=== PATIENT | male | born 1980 | race Caucasian/White ===

== ENCOUNTER 2016-07-06 18:39 | Emergency (ER) | payer OTHER ==
[~2016-07-06] VITALS: Ht 175.3 cm; Wt 163.3 kg
[2016-07-06] MEDS ORDERED: GLYBURIDE 5MG TA5 MG PO (18:46)
--- NOTE | 2016-07-06 18:51 | Emergency Room Report ---
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 N Clinical Suspician of Infection? N Mental Status: 1 - Regular (Normal Baseline) Sepsis Risk:Low Sepsis Risk Have you (or family members/close friends) recently traveled outside the [place]? N If Yes, where/when: Have you had exposure to infectious disease within the past month? N TB? Other? Specify: Source patient, RN notes reviewed Exam Limitations no limitations Comment This is a 36-year-old male with a past medical history significant for diabetes who presents to the emergency department for hyperglycemia. He states that he has been feeling well and in his baseline health with normal blood sugars that range in the 200 range until today when he was driving to work he felt groggy and sleepy with slightly blurred vision. He has felt this way before with high blood sugar, so checked his blood sugar at work and it was in the upper 500 range. The last time he checked his blood sugar was yesterday and it was in the 230s. He has not had any vomiting, diarrhea, chest pain, abdominal pain, shortness of breath, cough, urinary symptoms. He takes only glyburide for his diabetes and admits that he is a few months late for his primary care follow-up and diabetes reassessment. Currently, his symptoms are resolving. ALLERGIES Coded Allergies: No Known Allergies (07/06/16) (Conner UNGER, Sandro) Home Medications Reported Medications Glyburide (Glyburide 5MG) 5 MG PO BIDD (Osiris UNGER, Jhon) History Medical History General CAD? No Angina: No RI: No Hypertension? No Hyperlipidemia? No CHF? No DVT? No PE? No COPD? No Asthma? No Anemia? No GERD? No Gastric ulcers? No GI Bleed? No Hernia? No Thyroid Problems? No Hypothyroidism? No CVA? No Seizures? No Diabetes? Yes Insulin Dependent: No Insulin Pump: No Home FSBS? Yes Renal Insuffiency? No End Stage Renal Disease? No UTI? No Stones? No BPH? No GB Disease: No Nephritic Syndrome? No Asplenia? No Hepatitis? No Sickle Cell Disease? No Arthritis? No Migraines? No Cataracts? No Glaucoma? No MRSA? No HIV? No TB? No Anxiety? No Depression? No Cancer? No More? No Immunization Hx DT/Tetanus 1-4 Years Ago Surgical Hx Previous Surgery?Y GALLBLADDER Social History Smoking Hx Smoker: Never Smoker Tobacco: No Alcohol Alcohol: No (Conner UNGER [place]) Review of Systems All Other Systems Reviewed and Negative (Sandro Prieto MD) Physical Exam Vital Signs Vital Signs Date Time Temp Pulse Resp B/P Pulse O2 O2 Flow FiO2 Ox Delivery Rate 07/06 2205 82 16 148/97 92 07/06 2111 76 16 119/52 92 07/06 2028 98.2 84 16 132/86 92 07/06 1957 84 16 134/78 92 07/06 1841 98.2 98 18 151/81 95 General Appearance normal appearance, WD/WN Ear, Nose, Throat hearing grossly normal, normal ENT inspection Neck normal inspection, non-tender, supple, full range of motion Respiratory Status Yes: chest symmetrical, non tender chest. No: respiratory distress. Lung Sounds bilateral: normal breath sounds, lungs clear. Cardiovascular normal exam, regular rate/rhythm, no peripheral edema, no gallop, no JVD, no murmur, no rub, normal peripheral pulses Gastrointestinal normal bowel sounds, normal exam, non tender Neurologic alert, no motor/sensory deficits, oriented x 3 Skin intact, normal color, warm/dry (Conner UNGER [place]) Medical Decision Making LABS/Meds/Orders Pt receiving controlled substance in ED? No Results/Orders Laboratory Tests 07/06/161944: Urine Color YELLOW, Urine Appearance CLEAR, Urine pH 7.0, Ur Specific [place] <= 1.005, Urine Protein NEGATIVE, Urine Ketones NEGATIVE, Urine Blood NEGATIVE, Urine Nitrate NEGATIVE, Urine Bilirubin NEGATIVE, Urine Urobilinogen 0.2, Ur Leukocyte Esterase NEGATIVE, Ur Squamous Epith Cells 3-5, Urine Bacteria TRACE, Urine Glucose 3+ H 07/06/161932: VBG pH 7.35, VBG Total CO2 Pending, VBG O2 Sat (Calc) Pending, VBG Base Excess Pending, Mixed VBG pCO2 Pending, Mixed VBG pO2 Pending, Mixed VBG HCO3 Pending 07/06/16 1840: Sodium 134 L, Potassium 4.0, Chloride 99, Carbon Dioxide 27, BUN 10, Creatinine 1.2, Estimated Creat Clear 200, Estimated GFR (MDRD) 69, Glucose 575 *H, Calcium 8.1 L, Total Bilirubin 0.4, AST 39 H, ALT 45, Alkaline Phosphatase 141 H, Total Protein 7.3, Albumin 2.9 L, Globulin 4.4 H, Albumin/Globulin Ratio 0.7 L, WBC 10.1, RBC 4.97, Hgb 15.1, Hct 44.1, MCV 88.7, RDW 13.7, Plt Count 192, Gran % 68.4, Gran # 6.9, Lymphocytes % 27.2, Monocytes % 4.4, Lymphocytes # 2.7, Monocytes # 0.4, PUBS MCHC 34.2, MCH 30.4, Acetone Level NONE DETECTED Current Medication Orders Sig/Haley Start time Last Medication Dose Route Stop Time Status Admin Insulin Human Regular 10 UNITS ONCE ONE 07/06 1999 DC 07/06 SC 07/06 Sodium Chloride 1,000 ML .Q1H1M 07/06 1999 CAN IV 07/06 2100 Sodium Chloride 10 ML PRN PRN 07/06 1999 AC IV 07/07 194 Sodium Chloride 1,000 ML .Q1H1M 07/06 1999 DC 07/06 IV 07/06 Sodium Chloride 10 ML PRN PRN 07/06 1999 AC IV 07/07 1956 Insulin Human Regular 0 .STK-MED ONE 07/06 1951 DC .ROUTE Sodium Chloride 1,000 ML .STK-MED ONE 07/06 1950 DC IV Insulin Human Regular 100 UNITS .Q10H 07/06 1930 CAN Sodium Chloride 100 ML IV Sodium Chloride 1,000 ML .Q1H1M 07/06 1900 DC 07/06 IV 07/06 1999 185 Sodium Chloride 10 ML PRN PRN 07/06 190 AC IV 07/07 1851 Sodium Chloride 10 ML PRN PRN 07/06 190 AC IV 07/07 1851 Sodium Chloride 1,000 ML .STK-MED ONE 07/06 1852 DC IV Orders Procedure Date/time Status Acetone, Serum 07/06 1907 Complete VENOUS BLOOD GAS 07/06 1851 Active IV SALINE LOCK 07/06 1851 Active URINALYSIS/COMPLETE 07/06 1851 Complete FSBS REQUEST BY CARE AREA 07/06 1851 Active CBC WITH AUTO DIFF 07/06 1851 Complete CHEM 12 PROFILE 07/06 1851 Complete Progress - 8:00 PM:At shift change, patient report received from Dr. Prieto, and care of the patient assumed by me at this time. 9:38 PM: The patient's blood sugar was 480 after 10 units of insulin and fluids. I called Dr. Forrest who is on for service admissions and we discussed admission. I felt the patient should be admitted for hydration and further control of his blood sugar. Dr. Forrest does not feel the patient requires admission for this and suggested I call the primary care physician to see if he can be seen tomorrow. 10 PM: Unable to reach the patient's primary care physician. The number provided only reaches a nurse advice line. The patient's blood sugar, however has now come down to 396. He says he normally runs at least in the 200s, frequently 300s and he is comfortable going home. He says that he will be able to see his primary care physician tomorrow, I feel comfortable with him being discharged. (Osiris UNGER, [place]) Departure Departure Disposition Still a Patient Clinical Impression Primary Impression: Hyperglycemia Condition STABLE Referrals VANESSA BECERRA (Family) Additional Instructions Follow-up with your primary care provider tomorrow to discuss alteration of your diabetes medications. You should keep a log of your blood sugars, checking than 3 times daily. Return to the emergency department for any acute recurrence of symptoms. ED Critical Care Critical Care No Comments Patient well appearing here with a nonfocal neurologic exam. He is already feeling better here though he has not had any treatment yet. He does have a fingerstick in the 500 range. Laboratory glucose confirmed at 575. He has no serum ketones and exhibits no signs of DKA. He is given a liter of fluids. He is given 10 units of insulin IV. He will need improved control of his diabetes which can be managed tomorrow by his primary care provider. At this point, he will need repeated doses of insulin and fluid until he has a blood sugar in the 200-300 range. At this point, I believe he can be safely discharged home and follow-up with PCP tomorrow for adjustment of medication. Patient care transferred to Dr. Newell at 1999. (Sandro Prieto MD) Departure Patient Instructions DI for Hyperglycemia -- Adult (Jhon Newell MD) at 1959 at [id number]
[2016-07-06 19:16] LABS: HEMOGLOBIN 15.1 g/dL (14.1-18.0); LYMPH % 27.2 % (10-50)
[2016-07-06 19:17] LABS: LYMPH # 2.7 K/mm3 (0.7-4.5)
[2016-07-06 20:02] LABS: URINE BILIRUBIN - DIPSTICK NEGATIVE (NEG); URINE BLOOD NEGATIVE (NEG)
[2016-07-06 22:20] VITALS: BP 148/97
== END 2016-07-06 22:21 | disposition still patient (30) ==
LOC: ER 18:39
PROVIDERS: Emergency Medicine
DX: E11.65 Type 2 diabetes mellitus with hyperglycemia (principal)